=== PATIENT | female | born 1945 | race Caucasian/White ===

== ENCOUNTER 2020-02-03 09:33 | Emergency (ER) | payer MEDICARE, SELFPAY ==
[2020-02-03 09:48] VITALS: BP 221/100; PULSE 92; RESP 20; TEMP 37.8; O2SAT 100
[2020-02-03 10:00] VITALS: BP 160/82
--- NOTE | 2020-02-03 10:29 | ED.SKABFB ---
HPI - Skin/Abscess/Foreign Bdy General Chief complaint: Skin/Abscess/Foreign Body Stated complaint: alergic reaction to medication Time Seen by Provider: 02/03/20 10:10 Source: patient and RN notes reviewed Mode of arrival: ambulatory Limitations: no limitations History of Present Illness HPI narrative: Patient presents today complaining of a chronic issue with her skin, especially to the left lower leg. Patient has seen her doctor, Dr. Sanchez, several times for this. They have tried antibiotics, steroid creams, Silvadene. Nothing has helped, and she has agreed to see dermatology. She does not have an appointment until April, and states the itching has become very severe. She has been trying baking soda and water soaked cotton balls, as well as soaking her leg in salt water, which does help briefly with the itching. She has not tried any oral medication for itching. States the itching has spread to the right leg, bilateral upper legs, bilateral arms, bilateral ears. States she does have an [id number] lotion that she uses occasionally as well. MD complaint: rash Related Data Home Medications Medication Instructions Recorded Confirmed hydrocortisone [Cortizone-10] 1 applic TOPICAL TID 02/03/20 02/03/20 Allergies Allergy/AdvReac Type Severity Reaction Status Date / Time No Known Allergies Allergy Verified 02/03/20 09:56 Review of Systems Review of Systems: Narrative: CONSTITUTIONAL: Denies body aches, fever, chills, or sweats. EYES: Denies visual changes, redness, or discharge. ENT: Denies rhinorrhea, congestion, sore throat, or otalgia. CARDIOVASCULAR: Denies chest pain, palpitations, or edema. RESPIRATORY: Denies cough or dyspnea. GASTROINTESTINAL: Denies abdominal pain, nausea, vomiting, or diarrhea. GENITOURINARY: Denies dysuria or hematuria. SKIN: Denies rash, or wounds. + Itching to bilateral upper and lower extremities and ears MUSCULOSKELETAL: Denies back pain, joint pain, or myalgia. NEUROLOGIC: Denies headache, numbness, tingling, or weakness. PSYCH: Denies depression or anxiety. [facility] Social History Social History (Updated 01/19/20 @ 14:10 by Pastora Rivera [facility]) Smoking status: Never smoker Alcohol intake: current Substance use type: does not use Comments At time of signature, I have reviewed and agree with nursing past medical, surgical, social and family history unless otherwise noted. Please see nursing chart for further information. There is no relevant family history pertinent to the presenting complaint Exam Narrative: Exam Narrative: GENERAL: Well-appearing, well-nourished, and in no acute distress. HEAD: Normocephalic, atraumatic. EYES: EOMI. No redness or drainage. Conjunctivae normal. ENT: Mucous membranes pink and moist. NECK: Normal AROM. CHEST: No respiratory distress. EXTREMITIES: Normal range of motion. No edema. SKIN: Warm, very dry. Capillary refill normal. The skin to the left lower leg is very dry and thickened and somewhat reddened in color with scattered small open wounds consistent with constant scratching. These open wounds extend upward to the upper legs and are also seen on the right leg and bilateral arms without thickening and reddening. Distal sensation intact. Capillary refill normal. NEURO: No focal deficits. Alert and oriented x3. Gait steady. PSYCH: Normal affect. No signs of depression or anxiety. Course Course Emergency Course: Discussed with patient use of antihistamines for her severe itching. She continues to scratch severely during the entire exam. Anticipatory guidance given for antihistamine use in older adults, and reasons to go to the ER. Vital Signs Vital signs: Vital Signs Temperature 100.1 F H 02/03/20 09:48 Pulse Rate 92 02/03/20 09:48 Respiratory Rate 20 02/03/20 09:48 Blood Pressure 221/100 H 02/03/20 09:48 Pulse Oximetry 100 02/03/20 09:48 Temperature 100.1 F H 02/03/20 09:48 Pulse Rate 92
== END 2020-02-03 10:34 | disposition home or self-care (01) ==
PROVIDERS: Emergency Provider Nurse Practitioner; PCP Family Medicine
DX: L30.9 Dermatitis, unspecified (principal)
CPT/HCPCS: 99211; G0463

== ENCOUNTER 2020-04-12 10:38 | Outpatient (CLI) | payer MEDICARE, SELFPAY | END 2020-04-12 10:39 | disposition home or self-care (01) | LOC: ANHBWCAUD 10:40 | PROVIDERS: PCP Family Medicine; Visit Provider Family Medicine | DX: H90.2 Conductive hearing loss, unspecified (principal) | CPT/HCPCS: 92557; 92567 ==

== ENCOUNTER 2021-01-30 14:13 | Outpatient (CLI) | payer MEDICARE, SELFPAY ==
[2021-01-30 19:03] LABS: D Dimer 2.13 ug/mL (<0.48)
== END 2021-01-30 14:14 | disposition home or self-care (01) ==
LOC: ANHBWCLAB 14:14
PROVIDERS: PCP Family Medicine; Visit Provider Family Medicine
DX: M79.606 Pain in leg, unspecified (principal)
CPT/HCPCS: 36415; 85380

== ENCOUNTER 2021-03-27 13:25 | Outpatient (CLI) | payer MEDICARE, SELFPAY ==
[2021-03-27 18:22] LABS: Hematocrit 37.2 % (37.0-47.0); Hemoglobin 12.1 g/dL (12.0-15.0); Mean Corpuscular HGB Conc 32.5 g/dl (32-36); Mean Corpuscular Hemoglobin 32.9 pg (26-34); Mean Corpuscular Volume 101.1 fl (80-100); Mean Platelet Volume 10.4 fl (7.4-10.4); Platelet Count Result 237 k/mm3 (150-375); Red Blood Count 3.68 M/mm3 (4.2-5.4); Red Cell Distribution Width 12.8 % (11.5-14.5); White Blood Count 7.9 K/mm3 (4.5-10.0)
[2021-03-27 19:46] LABS: Alanine Aminotransferase 17 U/L (4-35); Albumin Level 4.1 g/dL (3.5-5.1); Alkaline Phosphatase 57 U/L (38-126); Anion Gap 5 mmol/L (8-16); Aspartate Amino Transferase 26 U/L (14-36); Bilirubin,Total 0.3 mg/dL (0.2-1.3); Blood Urea Nitrogen 23 mg/dL (7-17); Calcium 9.7 mg/dL (8.4-10.2); Carbon Dioxide 31 mmol/L (22-30); Chloride 103 mmol/L (98-107); Cholesterol 187 mg/dL (0-200); Estimated Glomerular Filt Rate > 60; Glucose 147 mg/dL (65-110); HDL Direct 69 mg/dL; Potassium 4.5 mmol/L (3.4-5.0); Sodium 139 mmol/L (137-145); Triglycerides 143 mg/dL (<150)
[2021-03-27 19:58] LABS: LDL Cholesterol Direct 87 mg/dL
[2021-03-27 22:43] LABS: Hemoglobin A1C 5.4 % (<5.7)
== END 2021-03-27 13:26 | disposition home or self-care (01) ==
PROVIDERS: PCP Family Medicine; Visit Provider Family Medicine
DX: R42 Dizziness and giddiness (principal); I10 Essential (primary) hypertension; I87.2 Venous insufficiency (chronic) (peripheral); N28.9 Disorder of kidney and ureter, unspecified; R73.09 Other abnormal glucose; Z00.00 Encounter for general adult medical examination without abnormal findings
CPT/HCPCS: 36415; 80053; 80061; 83036; 84443; 85027

== ENCOUNTER 2025-02-22 11:34 | Outpatient (CLI) | payer MEDICARE, SELFPAY ==
--- OUTSIDE RECORDS SUMMARY | 2019-07-18 09:30 | XMS_ITS | Continuity of Care Document ---
Author Organization [facility] Address [address] [place] [address] Phone Care Team Providers Care Manager Investment Name Role Phone Ksenia BORREGO, Amarjit Unavailable Unavailable Procedures Procedure Date Echo W/DOPPLER, COMPLETE OFFICE/OUTPATIENT VISIT, NEW EKG, Complete Advance Directives Directive Yes / No Effective Date File Name No Information Encounters Encounter Description Practice Location Reason(s) For Visit Diagnoses Date Provider Providers Copied on Encounter [facility], [address] [place] [address], [id number], tel:[phone] [facility] Main No Information 0 Ksenia Ocasio. [address] [facility], [place], [place], [id number], [place]. tel:[phone] OFFICE/OUTPAT IENT VISIT, NEW [facility], [address], [place], [id number], tel:[phone] [facility] Main Chest Pain, Unspecified 1 No Information Family History Family Member Type Diagnosis Age At Onset Father Problem (finding) cancer (Cause Of ) Mother Problem (finding) Mother Problem (finding) thoat cancer (Cause Of ) Father Problem (finding) Payers Payer name Insurance type Covered alliance party ID Authoriza tion(s) [employer] Capitated 16 [id number] Medicaid [id number] Social History Type Description Quantity Date Captured Comments Sex Female Smoking Status No Information Chief Complaint And Reason For Visit No Information Reason For Referral Reason For Referral No Information History Of Present Illness Encounter Date Complaint History Of Prese nt Illness No Information Functional Status Date Functional Assessmen t No Information Instructions Date Instruction Additional Infor mation No Information Assessments Type Assessment Date No Information Patient Care Teams Name Effective Dates (start - stop) Status Members No Information
--- OUTSIDE RECORDS SUMMARY | 2025-02-22 13:37 | XMS_ITS | Clinical Summary ---
Author Organization [facility] Address [address] [place] [address] Phone Care Team Providers Care Contact Lens Technician Name Role Phone Blayne Lowe MD Primary Care Provider [phone] Allergies No known active allergies Medications triamcinolone (KENALOG) 0.1 % Cream Apply 2 times daily. Application Site:apply topical bid Active raloxifene (EVISTA) 60 MG Tablet Take 60 mg by mouth daily. Active LISINOPRIL PO Take by mouth. A ctive Multiple Vitamin (MULTIVITAMIN PO) Take by mouth. Activ e Calcium Carbonate-Vit D-Min (CALCIUM 1200 PO) Take by mouth. Activ e aspirin EC 81 MG Tablet Delayed Response Take 81 mg by mouth daily. Active [place]-3 Fatty Acids (FISH OIL PO) Take by mouth. Activ e Cyanocobalamin (B-12 PO) Take by mouth. Activ e Family History Medical History Relation Name Comments Cirrhosis Brother Cancer Father Cancer Mother Relation Name Status Comments Brother Father Mother Social History Tobacco Use Types Packs/Day Years Used Date Smoking Tobacco: Never Smokeless Tobacco: Never Alcohol Use Standard Drinks/Week Comments Never 0 (1 standard drink = 0.6 oz pur e alcohol) Comments Unknown Sex and Gender Information Value Date Recorded Sex Assigned at Not on file Legal Sex Female 9:33 AM TAP PULLER Gender Identity Not on file Sexual Orientation Not on file Last Filed Vital Signs Vital Sign Reading Time Taken Comments Blood Pressure 104/50 06/09/2021 1:14 PM TAP PULLER Pulse 132 06/09/2021 1:14 PM TAP PULLER Temperature 36 C (96.8 F) 06/09/2021 1:11 PM TAP PULLER Respiratory Rate 17 06/09/2021 1:11 PM TAP PULLER Oxygen Saturation 95% 06/09/2021 1:11 PM TAP PULLER Inhaled Oxygen Concentration - - Weight 87 kg (191 lb 12.8 oz) 06/09/2021 1:11 PM TAP PULLER Height 162.6 cm (5' 4) 06/09/2021 1:11 PM TAP PULLER Body Mass Index 32.92 06/09/2021 1:11 PM TAP PULLER Plan of Treatment Health Maintenance Due Date Last Done Comments Hepatitis C Virus (HCV) Screening 1945 TdaP Immunization 1945 Pneumococcal Immunization (5 0+ years) (1 of 1 - PCV) 1995 Zoster Immunization (1 of 2) 1995 Respiratory Syncytial Virus (RSV) Immunization (Adult) (1 - 1-dose 75+ series) 2020 Medicare Initial AWV [id number] 11/07/2020 Influenza Immunization (#1) 2025 SARS-COV-2 Immunization ( - season) 2025 Hepatitis B Immunization Aged Out No longer eligible based on patient's age to complete this topic Human Papillomavirus (HPV) Immunization Aged Out No longer eligible b ased on patient's age to complete this topic Meningococcal Immunization (ACWY) Aged Out No longer eligible based on patient's age to complete this topic Rotavirus Immunization Aged Out No lo nger eligible based on patient's age to complete this topic Insurance MEDICARE C [employer] Care Teams Contact Lens Technician Relationship Specialty Start Date End Date Blayne Lowe MD [phone] (work) PCP - General Family Medicine 03/26/21
--- OUTSIDE RECORDS SUMMARY | 2025-02-22 13:37 | XMS_ITS | Clinical Summary ---
Author Organization Address [address] [place] [address] Care Team Providers Care Supervisory Forester Name Role Phone Ben Art WOOL WASHER Primary Care Provider + Social History Tobacco Use Types Packs/Day Years Used Date Smoking Tobacco: Never Assessed Comments Unknown Sex and Gender Information Value Date Recorded Sex Assigned at Not on file Legal Sex Female 2:44 PM CDT Gender Identity Not on file Sexual Orientation Not on file Obstetrics History Para Term AB IAB SAB Ectopic Multiple Livin g Live Births 2 2 2 Date Outcome GA Total Labor Labor/2nd/3rd Weight Sex Type Anes PTL Britney A1 A5 Name Clin Term Term Plan of Treatment Health Maintenance Due Date Last Done Comments Depression Screening 1945 Fall Risk Assessment 1945 Hepatitis C Screening 1945 DTaP/Tdap/Td Vaccine (1 - Tdap) 1956 Hepatitis B Screening 1963 Pneumococcal vaccine 65+ (1 of 1 - PCV) 1995 Zoster Vaccine (1 of 2) 1995 Well Visit 65+ 2010 Osteoporosis Screening-Bone Density Scan 12/23/2024 12/23/2022 Influenza Vaccine (#1) 2025 Procedures Procedure Name Priority Date/Time Associated Diagnosis Comments DEXA AXIAL SKELETON BONE DENSITY 1 OR MORE SITES Schedule Routine, Read Routine (OP Routine) 12/23/2022 10:12 AM CDT Age-related osteoporosis without current pathological fracture from Last 3 Months or Most Recently Relevant to Health Maintenance Results * Dexa Axial Skeleton Bone Density 1 or 2 Site (12/23/2022 10:12 AM CDT) Anatomical Region Laterality Modality Body N/A Other 12/23/2022 8:11 PM CDT Narrative 12/23/2022 8:13 PM CDT EXAM DESCRIPTION: DEXA AXIAL SKELETON BONE DENSITY 1 OR MORE SITES REASON FOR STUDY: 77 y/o year old F with given history of: m81.0 Screening. Postmenopausal Engineering Technical Writer/Model: [employer] Discovery SL (S/N [id number]) CLINICAL INFORMATION: Current height: 65 inches Maximum height: 66 inches Weight: 193 pounds Risk factors: Postmenopausal COMPARISON: None available FINDINGS: AP LUMBAR SPINE L1-L4: Total BMD is 0.905 g/cm2 T-score is -1.3 LEFT HIP: Total BMD is 0.903 g/cm2 T-score is -0.3 Femoral neck BMD is 0.690 g/cm2 T-score is -1.4 FRAX: FRAX tool cannot be utilized due to current treatment for osteoporosis IMPRESSION: Low Bone Mass. REFERENCE: Bone mineral density: Normal (T-score above or = -1.0) Low bone mass (T-score between -1.0 and -2.5) replaces the previously used term osteopenia Osteoporosis (T-score = or below -2.5) Medical evaluation for secondary causes of low bone mineral density may be appropriate. FRAX is a World Health Organization validated fracture risk assessment tool that calculates a person's 10 year probability of a major osteoporosis related fracture and hip fracture. According to the National Osteoporosis Foundation guidelines, postmenopausal women and men age 50 or older with low bone mass and a 10 year probability of a major osteoporosis related fracture = or greater than 20% or a 10 year probability of a hip fracture = or greater than 3% should be considered for treatment. For further information, including treatment recommendations, please refer to the 2019 ISCD Official Positions (http://www.iscd.org) and the NOF's Clinician's Guide to Prevention and Treatment of Osteoporosis (http://www.nof.org/professionals/clinical-guidelines) THIS IS AN ELECTRONICALLY VERIFIED FINAL REPORT 12/23/2022 8:13 PM - Electronically signed by Ramiro Barros M.D. MF: SATHISH Report ID: [id number] Reading Location: [id number] Procedure Note Ramiro Barros MD - 12/23/2022 EXAM DESCRIPTION: DEXA AXIAL SKELETON BONE DENSITY 1 OR MORE SITES REASON FOR STUDY: 77 y/o year old F with given history of: m81.0 Screening. Postmenopausal Engineering Technical Writer/Model: [employer] Discovery SL (S/N [id number]) CLINICAL INFORMATION: Current height: 65 inches Maximum height: 66 inches Weight: 193 pounds Risk factors: Postmenopausal COMPARISON: None available FINDINGS: AP LUMBAR SPINE L1-L4: Total BMD is 0.905 g/cm2 T-score is -1.3 LEFT HIP: Total BMD is 0.903 g/cm2 T-score is -0.3 Femoral neck BMD is 0.690 g/cm2 T-score is -1.4 FRAX: FRAX tool cannot be utilized due to current treatment for osteoporosis IMPRESSION: Low Bone Mass. REFERENCE: Bone mineral density: Normal (T-score above or = -1.0) Low bone mass (T-score between -1.0 and -2.5) replaces thepreviously used term osteopenia Osteoporosis (T-score = or below -2.5) Medical evaluation for secondary causes of low bone mineral density may be appropriate. FRAX is a World Health Organization validated fracture risk assessmenttool that calculates a person's 10 year probability of a major osteoporosisrelated fracture and hip fracture. According to the National OsteoporosisFoundation guidelines, postmenopausal women and men age 50 or older with low bonemass and a 10 year probability of a major osteoporosis related fracture = or greater than 20% or a 10 year probability of a hip fracture = or greaterthan 3% should be considered for treatment. For further information, including treatment recommendations, please referto the 2019 ISCD Official Positions (http://www.iscd.org) and the NOF's Clinician's Guide to Prevention and Treatment of Osteoporosis (http://www.nof.org/professionals/clinical-guidelines) THIS IS AN ELECTRONICALLY VERIFIED FINAL REPORT 12/23/2022 8:13 PM - Electronically signed by Ramiro Barros M.D. MF: SATHISH Report ID: [id number] Reading Location: [place] [address] Ben Art NP IMG DXA PROCEDURES Final Result from Last 3 Months or Most Recently Relevant to Health Maintenance Insurance MEDICARE HMO Care Teams Supervisory Forester Relationship Specialty Start Date End Date Ben Art NP PCP - General Nurse Practitioner 11/18/22
[2025-02-22 19:50] LABS: Alanine Aminotransferase 17 U/L (6-35); Albumin Level 4.3 g/dL (3.5-5.1); Alkaline Phosphatase 73 U/L (38-126); Anion Gap 8 mmol/L (4-12); Aspartate Amino Transferase 54 U/L (14-36); Bilirubin,Total 0.4 mg/dL (0.2-1.3); Blood Urea Nitrogen 18 mg/dL (7-17); Calcium 9.1 mg/dL (8.4-10.2); Carbon Dioxide 28 mmol/L (22-30); Chloride 106 mmol/L (98-107); Estimated Glomerular Filt Rate > 60; Glucose 106 mg/dL (65-110); Potassium 4.2 mmol/L (3.4-5.0); Sodium 142 mmol/L (137-145); Total Protein 7.6 g/dL (6.3-8.2)
== END 2025-02-22 11:35 | disposition home or self-care (01) ==
LOC: ANHBWCLAB 11:34
PROVIDERS: PCP Nurse Practitioner Adult Health; Visit Provider Nurse Practitioner Adult Health
DX: I10 Essential (primary) hypertension (principal)
CPT/HCPCS: 36415; 80053